=== PATIENT | male | born 1975 | race African-American/Black ===

== ENCOUNTER 2016-09-21 08:49 | Emergency (ER) | payer OTHER, BC ==
[~2016-09-21] VITALS: Ht 185.4 cm; Wt 108.9 kg
[~2016-09-21 08:49] MED LIST: ASPIR 8181 MG PO; BIAXIN500 MG PO; BISACODYL SUPP10 MG RECTAL; CARVEDILOL12.5 MG PO; CLEOCIN HCL150 MG PO; COLACE100 MG PO; COREG3.125 MG PO; FLAGYL500 MG PO; FLEXERIL PO; HYDROCODONE-AP1 EAC6 PO; HYDROXYZINE HCL25 M1 PO; MEDROLDOSEPACK PO; MIRALAX17 GM; NEPHRO-VITE RX1 TA1; NEPHRO-VITE RX1 TA1 PO; NEPHROCAPS SOFT1 CAP PO; NORCO 5-325 TA1 EACH PO; ONDANSETRON HCL4 M2 PO; OXYCODONE HCL 55 MG PO; PAXIL10 MG; PERCOCET 5-3251 EACH PO; PHENERGAN 25 MG25 M1 PO; PLAVIX 75 MG TA75 M1 PO; PROTONIX40 M1 PO; REGLAN 10 MG TA10 MG PO; RENAGEL400 MG PO; RENVELA800 MG PO; SENOKOT-S1 TA1 PO; SENSIPAR60 MG PO; TRAZODONE HCL100 MG PO; TYLENOL325 MG PO; VALIUM2 MG PO; VANCO1GM IV; XANAX1 MG PO; ZOFRAN ODT4 MG PO; ZPAK PO
[2016-09-21 09:12] LABS: ABSOLUTE NEUTROPHILS 5.8 thou/uL (1.4-8.2); BASOPHILS 1.1 % (0.0-2.0); EOSINOPHILS 4.2 % (0.0-3.0); HEMATOCRIT 47.6 % (42.0-52.0); HEMOGLOBIN 15.7 gm/dL (14.0-18.0); MCHC 32.9 % (28.0-37.0); MONOCYTES 9.6 % (1.0-8.0); PLATELET COUNT 235 thou/uL (150-400); POLYS 67.1 % (36.0-66.0); RBC 5.41 mil/uL (4.50-6.00); WBC 8.6 thou/uL (4.0-11.0)
[2016-09-21 09:14] LABS: MANUAL DIFF NO
[2016-09-21 09:21] LABS: CALCIUM 8.5 mg/dL (8.5-10.1); POTASSIUM 5.5 mmol/L (3.5-5.1)
[2016-09-21] MEDS ORDERED: ONDANSETRON HCL4 M2 PO (10:23)
[2016-10-03] MEDS ORDERED: COLACE100 MG PO (07:48)
[2016-10-03] MEDS ORDERED: CITRATE OF MAG296 ML PO (07:48)
== END 2016-09-21 10:44 | disposition home or self-care (01) ==
LOC: ER 08:49
PROVIDERS: Physician Assistant
DX: K31.84 Gastroparesis (principal); I12.9 Hypertensive chronic kidney disease with stage 1 through stage 4 chronic kidney disease, or unspecified chronic kidney disease; N18.9 Chronic kidney disease, unspecified; I25.2 Old myocardial infarction; Z88.0 Allergy status to penicillin; Z91.013 Allergy to seafood

== ENCOUNTER 2016-09-22 08:59 | Emergency (ER) | payer OTHER, BC ==
[~2016-09-22] VITALS: Ht 182.9 cm; Wt 109.8 kg
[2016-09-22 09:45] LABS: HEMATOCRIT 52.2 % (42.0-52.0); HEMOGLOBIN 17.2 gm/dL (14.0-18.0); MCH 28.8 pg (26.0-34.0); MCV 87.4 fL (80.0-100.0); PLATELET COUNT 211 thou/uL (150-400); RBC 5.97 mil/uL (4.50-6.00); WBC 6.1 thou/uL (4.0-11.0)
[2016-09-22 09:48] LABS: MANUAL DIFF YES
[2016-09-22 10:00] LABS: CALCIUM 9.3 mg/dL (8.5-10.1); POTASSIUM 4.6 mmol/L (3.5-5.1)
[2016-09-22 10:07] LABS: TOTAL BILIRUBIN 0.8 mg/dL (<0.1-1.0); TOTAL PROTEIN 8.2 g/dL (6.4-8.2)
[2016-09-22 10:08] LABS: CREATININE 11.8 mg/dL (0.6-1.3)
[2016-09-22 10:30] LABS: ABSOLUTE NEUTROPHILS 4.1 thou/uL (1.4-8.2); TOTAL CELL COUNT 100
[2016-09-22 10:31] LABS: ANISOCYTOSIS 1+
[2016-10-03] MEDS ORDERED: CITRATE OF MAG296 ML PO (07:48)
[2016-10-03] MEDS ORDERED: COLACE100 MG PO (07:48)
== END 2016-09-22 10:53 | disposition home or self-care (01) ==
LOC: ER 08:59
PROVIDERS: Physician Assistant
DX: E86.9 Volume depletion, unspecified (principal); I12.9 Hypertensive chronic kidney disease with stage 1 through stage 4 chronic kidney disease, or unspecified chronic kidney disease; N18.9 Chronic kidney disease, unspecified; I25.2 Old myocardial infarction; Z88.0 Allergy status to penicillin; Z91.013 Allergy to seafood

== ENCOUNTER 2017-02-05 23:10 | Emergency (ER) | payer OTHER ==
[~2017-02-05 23:10] MED LIST changes: +CITRATE OF MAG296 ML PO
== END 2017-02-05 23:24 | disposition left against medical advice (07) ==
LOC: ER 23:10
DX: Z53.21 Procedure and treatment not carried out due to patient leaving prior to being seen by health care provider (principal)

== ENCOUNTER 2017-03-27 16:47 | Emergency (ER) | payer OTHER ==
[~2017-03-27] VITALS: Ht 182.9 cm; Wt 110.7 kg
[~2017-03-27 16:47] MED LIST changes: +ZANTAC 150MG T150 MG PO
[2017-03-27] MEDS ORDERED: XANAX 0.5 MG0.5 MG PO (16:54)
[2017-03-27] MEDS ORDERED: CARVEDILOL3.125 MG PO (16:54)
[2017-03-27] MEDS ORDERED: HYDROCODONE-AP1 EAC6 PO (18:28)
== END 2017-03-27 18:29 | disposition home or self-care (01) ==
LOC: ER 16:47
DX: S92.412A Displaced fracture of proximal phalanx of left great toe, initial encounter for closed fracture (principal); E78.00 Pure hypercholesterolemia, unspecified; I25.2 Old myocardial infarction; I12.0 Hypertensive chronic kidney disease with stage 5 chronic kidney disease or end stage renal disease; N18.6 End stage renal disease; F12.10 Cannabis abuse, uncomplicated; Z99.2 Dependence on renal dialysis; Z94.0 Kidney transplant status; Z88.0 Allergy status to penicillin; Z91.013 Allergy to seafood; W22.8XXA Striking against or struck by other objects, initial encounter; Y93.02 Activity, running; Y92.89 Other specified places as the place of occurrence of the external cause; Y99.8 Other external cause status

== ENCOUNTER 2017-11-04 22:56 | Emergency (ER) | payer OTHER, BC ==
[~2017-11-04] VITALS: Ht 188 cm; Wt 109.8 kg
[~2017-11-04 22:56] MED LIST changes: +CARVEDILOL3.125 MG PO; +XANAX 0.5 MG0.5 MG PO
[2017-11-05 00:32] VITALS: BP 131/84
== END 2017-11-05 00:36 | disposition home or self-care (01) ==
LOC: ER 22:56
DX: J00 Acute nasopharyngitis [common cold] (principal); I10 Essential (primary) hypertension; E78.00 Pure hypercholesterolemia, unspecified; I25.2 Old myocardial infarction; Z88.0 Allergy status to penicillin; Z91.013 Allergy to seafood

== ENCOUNTER → 2018-11-11 | Outpatient (CLI) | payer OTHER | LOC: NUC 11-01 10:51 → LABMALL 08:21 → NUC 08:21 | DX: N25.81 Secondary hyperparathyroidism of renal origin (principal); E11.22 Type 2 diabetes mellitus with diabetic chronic kidney disease; N18.6 End stage renal disease; I12.0 Hypertensive chronic kidney disease with stage 5 chronic kidney disease or end stage renal disease; E11.621 Type 2 diabetes mellitus with foot ulcer; E78.5 Hyperlipidemia, unspecified; L97.529 Non-pressure chronic ulcer of other part of left foot with unspecified severity; Z99.2 Dependence on renal dialysis ==

== ENCOUNTER 2020-04-25 14:23 | Emergency (ER) | payer OTHER, BC ==
[~2020-04-25] VITALS: Ht 182.9 cm; Wt 127.0 kg
[~2020-04-25 14:23] MED LIST changes: +CALCITRIOL0.25 MCG PO; +COREG25 MG PO; +MIRALAX17 GM PO; +NORCO 7.5-3251 EACH PO; +PANTOPRAZOLE SO40 M1 PO; +SIMETHICON CHEW80 M1 PO; +TUMS PO; +TYLENOL EXTRA500 MG PO
[2020-04-25 15:37] LABS: HEMATOCRIT 46.9 % (42.0-52.0); HEMOGLOBIN 15.8 gm/dL (14.0-18.0); MCH 28.7 pg (26.0-34.0); MCHC 33.7 g/dL (28.0-37.0); MCV 85.3 fL (80.0-100.0); PLATELET COUNT 130 thou/uL (150-400); RDW 16.5 % (10.5-14.5); WBC 4.5 thou/uL (4.0-11.0)
[2020-04-25 15:46] LABS: ANION GAP 10 mmol/L (7-16); BUN 53 mg/dL (7-18); CALCIUM 8.1 mg/dL (8.5-10.1); CHLORIDE 88 mmol/L (98-107); CO2 31 mmol/L (21-32); GLUCOSE 95 mg/dL (74-106); POTASSIUM 5.6 mmol/L (3.5-5.1); SODIUM 129 mmol/L (136-145)
[2020-04-25 15:55] LABS: ALBUMIN 3.2 g/dL (3.4-5.0); LIPASE 108 U/L (73-393); SGOT 28 U/L (15-37); SGPT 20 U/L (30-65); TOTAL BILIRUBIN 0.7 mg/dL (0.2-1.0); TOTAL PROTEIN 7.3 g/dL (6.4-8.2); TROPONIN-I <0.06 ng/mL (<0.06)
[2020-04-25 16:03] LABS: ABSOLUTE NEUTROPHILS 3.3 thou/uL (1.4-8.2); ANISOCYTOSIS 1+
[2020-04-25 18:17] VITALS: BP 142/85
--- NOTE | 2020-04-26 09:23 | EKG ---
[facility] [place] [address] ELECTROCARDIOGRAM REPORT Name: SAMUEL VELASCO Room #: DEP [facility]#: [id number] Admission: 04/25/20 Attend Phys: Discharge: 04/25/20 Date of : 75 Report #: [id number] THIS REPORT FOR: cc: FAM - No family physician/PCP FAM - No family physician/PCP Luis Felipe Hernandez MD [facility] THIS REPORT FOR: //name// [facility] ED Test Date: 2020-04-25 Test Time: 14:50:36 Pat Name: SAMUEL VELASCO Department: Room: Gender: Coffee Shop Manager: DUANE : 1975 Requested By: Carlos Mendez Order Number: [id number] MD: Luis Felipe Hernandez Measurements Intervals [place] Rate: 85 P: 79 [place]: 155 QRS: 74 QRSD: 143 T: 40 QT: 387 QTc: 461 Interpretive Statements Sinus rhythm Small inferior Q waves Compared to ECG 11/20/2018 08:08:59 Inferior Q waves are much less prominent Electronically Signed On 04-26-2020 9:23:25 CDT by Luis Felipe Hernandez [email or web address] <ELECTRONICALLY SIGNED> By: Luis Felipe Hernandez MD, [facility] 04/26/20 0923 1450 1450 Luis Felipe Hernandez MD, [facility] /EPI
== END 2020-04-25 18:17 | disposition home or self-care (01) ==
LOC: ER 14:23
PROVIDERS: Emergency Medicine
DX: R10.84 Generalized abdominal pain (principal); I10 Essential (primary) hypertension; I25.2 Old myocardial infarction; K21.9 Gastro-esophageal reflux disease without esophagitis; Z79.899 Other long term (current) drug therapy; Z88.0 Allergy status to penicillin; Z91.013 Allergy to seafood; Z88.8 Allergy status to other drugs, medicaments and biological substances

== ENCOUNTER 2020-04-27 21:43 | Inpatient (IN) | payer OTHER, BC ==
[~2020-04-27] VITALS: Ht 182.9 cm; Wt 54.2 kg
[2020-04-27 21:48] VITALS: BP 145/100
[2020-04-27 22:23] LABS: ABSOLUTE NEUTROPHILS 2.2 thou/uL (1.4-8.2); BASOPHILS 0.7 % (0.0-2.0); EOSINOPHILS 0.1 % (0.0-3.0); HEMATOCRIT 47.1 % (42.0-52.0); HEMOGLOBIN 15.7 gm/dL (14.0-18.0); LYMPHOCYTES 19.8 % (24.0-44.0); MCH 28.6 pg (26.0-34.0); MCHC 33.4 g/dL (28.0-37.0); MCV 85.7 fL (80.0-100.0); MONOCYTES 11.8 % (1.0-8.0); POLYS 67.6 % (36.0-66.0); RDW 16.4 % (10.5-14.5); WBC 3.3 thou/uL (4.0-11.0)
[2020-04-27 22:30] LABS: CALCIUM 7.1 mg/dL (8.5-10.1); POTASSIUM 5.4 mmol/L (3.5-5.1)
[2020-04-27 22:41] LABS: ALBUMIN 3.1 g/dL (3.4-5.0); TOTAL BILIRUBIN 0.5 mg/dL (0.2-1.0); TOTAL PROTEIN 7.1 g/dL (6.4-8.2); TROPONIN-I 0.21 ng/mL (<0.06)
[2020-04-27 23:28] LABS: PLATELET COUNT 98 thou/uL (150-400); PLATELET ESTIMATE DECREASED
[2020-04-28 05:34] LABS: HEMATOCRIT 47.3 % (42.0-52.0); HEMOGLOBIN 15.3 gm/dL (14.0-18.0); MCH 28.4 pg (26.0-34.0); MCHC 32.3 g/dL (28.0-37.0); MCV 87.7 fL (80.0-100.0); RBC 5.39 mil/uL (4.50-6.00); RDW 16.3 % (10.5-14.5); WBC 3.2 thou/uL (4.0-11.0)
[2020-04-28 07:06] VITALS: BP 105/79
--- NOTE | 2020-04-28 08:32 | EKG ---
[facility] [address] [address] ELECTROCARDIOGRAM REPORT Name: SAMUEL VELASCO Room #: 170-8 ADM IN M.R.#: [id number] Admission: 04/27/20 Attend Phys: Jude Hernandez Discharge: Date of : 75 Report #: [id number] THIS REPORT FOR: cc: AGUSTIN - [place] family physician/PCP AGUSTIN - No family physician/PCP Luis Felipe Hernandez MD [facility] THIS REPORT FOR: //name// [facility] ED Test Date: 2020-04-27 Test Time: 22:08:45 Pat Name: SAMUEL VELASCO Department: Room: 170 Gender: M [employer]: TOPHER : 1975 Requested By: Jonny Shannon Order Number: [id number] MD: Luis Felipe Hernandez Measurements Intervals [place] Rate: 102 P: 99 [place]: 190 QRS: 90 QRSD: 100 T: 52 QT: 342 QTc: 446 Interpretive Statements Sinus tachycardia with frequent atrial premature complexes Borderline right axis deviation Possible anteroseptal infarct, old Compared to ECG 04/25/2020 14:50:36 Atrial premature complexes are now present Electronically Signed On 04-28-2020 8:32:44 CDT by Luis Felipe Hernandez [email or web address] <ELECTRONICALLY SIGNED> By: Luis Felipe Hernandez MD, [facility] 04/28/20831 07 07 Luis Felipe Hernandez MD, FAC /EPI
[2020-04-28 15:15] LABS: CALCIUM 6.6 mg/dL (8.5-10.1); CREATININE 11.6 mg/dL (0.7-1.3)
[2020-04-28 15:21] LABS: POTASSIUM 6.4 mmol/L (3.5-5.1)
[2020-04-28 19:44] VITALS: BP 133/96
[2020-04-28 20:42] VITALS: BP 133/94
[2020-04-28 23:49] VITALS: BP 145/88
[2020-04-29] VITALS (7 sets, daily range): BP systolic 123–163; BP diastolic 74–96
[2020-04-29] MEDS ORDERED: ASPIR 8181 MG PO (09:32)
[2020-04-29 11:06] LABS: CALCIUM 6.5 mg/dL (8.5-10.1)
[2020-04-29 11:09] LABS: POTASSIUM 5.4 mmol/L (3.5-5.1)
[2020-04-29] MEDS ORDERED: CHLORPROMAZINE25 M1 PO (12:46)
[2020-04-30] VITALS (7 sets, daily range): BP systolic 100–140; BP diastolic 46–87
[2020-05-01 04:57] VITALS: BP 132/74
[2020-05-01 09:01] LABS: HEMATOCRIT 43.6 % (42.0-52.0); HEMOGLOBIN 14.2 gm/dL (14.0-18.0); MCH 28.1 pg (26.0-34.0); MCHC 32.7 g/dL (28.0-37.0); RBC 5.07 mil/uL (4.50-6.00); RDW 16.3 % (10.5-14.5); WBC 2.9 thou/uL (4.0-11.0)
[2020-05-01 09:14] LABS: ALBUMIN 2.5 g/dL (3.4-5.0); CALCIUM 6.2 mg/dL (8.5-10.1); CREATININE 13.2 mg/dL (0.7-1.3); PHOSPHORUS 5.1 mg/dL (2.5-4.9); POTASSIUM 4.3 mmol/L (3.5-5.1)
[2020-05-01 09:25] LABS: FIBRINOGEN 388.3 mg/dL (210-360); INR 1.1; PROTIME 11.6 Seconds (9.3-11.4)
[2020-05-01 11:03] LABS: ALBUMIN 2.6 g/dL (3.4-5.0); DIRECT BILIRUBIN 0.2 mg/dL (<0.1-0.2); TOTAL BILIRUBIN 0.5 mg/dL (0.2-1.0); TOTAL PROTEIN 6.6 g/dL (6.4-8.2)
[2020-05-01 11:49] VITALS: BP 135/88
[2020-05-01 14:53] VITALS: BP 176/83
[2020-05-01 18:22] VITALS: BP 150/51
[2020-05-01 19:32] VITALS: BP 113/70
[2020-05-02 00:14] VITALS: BP 118/66
[2020-05-02 04:30] VITALS: BP 116/74
[2020-05-02 07:00] VITALS: BP 123/78
[2020-05-02 11:25] VITALS: BP 113/61
[2020-05-02 20:15] VITALS: BP 138/84
[2020-05-02 23:21] VITALS: BP 146/94
[2020-05-03 05:57] VITALS: BP 113/79
[2020-05-03 07:42] VITALS: BP 137/111
[2020-05-03] MEDS ORDERED: DILTIAZEM 24HR180 M1 PO (09:09)
[2020-05-03] MEDS ORDERED: ELIQUIS2.5 MG PO (09:09)
[2020-05-03 11:35] VITALS: BP 140/107
--- NOTE | 2020-05-05 16:07 | HC ---
[facility] [place] [address] CONSULTATION Name: SAMUEL VELASCO Room #: 364-P [facility] IN M.R.#: [id number] Admission: 04/27/20 Attend Phys: Jude Hernandez Discharge: 05/03/20 Date of : 75 Report #: [id number] THIS REPORT FOR: cc: AGUSTIN - [place] family physician/PCP AGUSTIN - [place] family physician/PCP Gurmeet English MD ~ CC: AGUSTIN physician/PCP Jude Hernandez DATE OF SERVICE: 05/03/2020 WOUND CARE CONSULTATION PERSONAL PHYSICIAN: Radha. CHIEF COMPLAINT: Right lateral foot ulcer. HISTORY OF PRESENT ILLNESS: This is a 44-year-old black male with a history of end-stage renal disease and coronary artery disease, who was admitted for intractable hiccups and found to have a non-ST elevation myocardial infarction. The patient was also COVID-19 positive. Upon admission, the patient was noted to have a chronic ulcer on the right lateral aspect of his foot, which we have been asked to assist in the care. The patient states he has had this ulceration for several weeks. He is followed by outside physician at [facility]. The patient states that he has been using dry gauze to keep it as dry as possible per the physician's request. The patient denies any other associated wounds at this time. The patient states actually he is feeling better and is planning on leaving to go home today. PAST MEDICAL HISTORY: Once again end-stage renal disease with a failed kidney transplant in 2006, coronary artery disease, hypertension, dialysis, chronic ulceration right lateral foot. CURRENT MEDICATIONS: Multiple. I reviewed his medication list. DRUG ALLERGIES: PENICILLIN, REGLAN, AND SHELLFISH. SOCIAL HISTORY: The patient does not smoke or drink alcohol. Does smoke marijuana occasionally. FAMILY HISTORY: Not pertinent to current medical condition. REVIEW OF SYSTEMS: CONSTITUTIONAL: The patient denies chills. Has had a low-grade fever. NEUROLOGIC: The patient complains of mild generalized weakness, but no isolated weakness in arms or legs. [address] [address] CONSULTATION Name: SAMUEL VELASCO Room #: 364-P [facility] IN M.R.#: [id number] Admission: 04/27/20 Attend Phys: Jude Hernandez Discharge: 05/03/20 Date of : 75 Report #: [id number] EYES: No complaints. ENT: The patient was admitted for intractable hiccups, which have now resolved. CARDIAC: The patient denies chest pain, palpitations, peripheral edema. RESPIRATORY: The patient denies shortness of breath, cough or wheezes. GASTROINTESTINAL: The patient denies nausea, vomiting or abdominal pain. GENITOURINARY: The patient denies urgency or frequency. MUSCULOSKELETAL: No complaints. SKIN: The patient has a chronic ulcer on the right lateral plantar foot over the fifth metatarsal head. PHYSICAL EXAMINATION: VITAL SIGNS: Temperature 36.4, pulse 100, respirations 18, BP 140/107. GENERAL: Alert and oriented x 3, pleasant black male who is in absolutely no distress. HEENT: Normocephalic, atraumatic. Mucous membranes moist. Pupils are round. Sclerae white. NECK: Supple, nontender. LUNGS: Clear. HEART: Regular. ABDOMEN: Soft, nontender. EXTREMITIES: The patient moves all extremities without difficulty. Distal pulses are intact. Evaluation of right lateral foot reveals a chronic ulcer, which is clean and granulating, but does probe to bone, but however, there is not any evidence of exposed bone. Periwound is otherwise intact and dry. There is minimal serosanguineous drainage noted without odor. No significant undermining or tunneling. Bilateral heels are intact. NEUROLOGIC: Cranial nerves 2-12 grossly intact. Motor and sensory grossly intact. LABORATORY DATA: White count 2.9, hemoglobin 14.2. C-reactive protein was 213.8, albumin was 2.5. X-ray of the right foot reveals no signs of any obvious osteomyelitis. IMPRESSION: 1. Chronic ulceration, right lateral foot fifth metatarsal head. 2. End-stage renal disease, on hemodialysis. 3. Coronary artery disease. 4. Hypertension. 5. Protein-calorie malnutrition -- moderate with albumin 2.5. 6. Generalized debility. PLAN: We will use Betadine and dry gauze to the right lateral foot be changed daily. The patient is going to be discharged today. He will follow up with his primary care physician who provided in his wound care. I did give the patient my card and had stated if he needs further wound care or additional wound care, he can always contact my office for further followup. I have encouraged him to [address] [address] CONSULTATION Name: SAMUEL VELASCO Room #: 364-P [facility] IN ..#: [id number] Admission: 04/27/20 Attend Phys: Jude Hernandez Discharge: 05/03/20 Date of : 75 Report #: [id number] try to eat increased protein supplementation for his renal diet for healing. We will continue all other current medications. I appreciate ability to consult. <ELECTRONICALLY SIGNED> By: Gurmeet English MD 05/05/20 1607 1646 1936 Gurmeet English MD /nt
== END 2020-05-03 13:10 | disposition home or self-care (01) | DRG 177 ==
LOC: ER 21:43 → 3W 23:36 → EROBS 23:36 → 3W 04-28 20:10
PROVIDERS: Emergency Medicine; Nurse Practitioner Family; Specialist; ADMIT Hospitalist; ATTEND Hospitalist
PROC: 5A1D70Z Performance of Urinary Filtration, Intermittent, Less than 6 Hours Per Day (ICD-10-PCS; principal; 2020-04-28)
PROC: 5A1D70Z Performance of Urinary Filtration, Intermittent, Less than 6 Hours Per Day (ICD-10-PCS; 2020-04-29)
PROC: 5A1D70Z Performance of Urinary Filtration, Intermittent, Less than 6 Hours Per Day (ICD-10-PCS; 2020-05-01)
PROC: XW13325 Transfusion of Convalescent Plasma (Nonautologous) into Peripheral Vein, Percutaneous Approach, New Technology Group 5 (ICD-10-PCS; 2020-05-01)
PROC: 5A1D70Z Performance of Urinary Filtration, Intermittent, Less than 6 Hours Per Day (ICD-10-PCS; 2020-05-03)
DX: U07.1 COVID-19 (principal); I21.4 Non-ST elevation (NSTEMI) myocardial infarction; N18.6 End stage renal disease; J12.89 Other viral pneumonia; I12.0 Hypertensive chronic kidney disease with stage 5 chronic kidney disease or end stage renal disease; E87.1 Hypo-osmolality and hyponatremia; T86.12 Kidney transplant failure; E44.0 Moderate protein-calorie malnutrition; Z68.1 Body mass index [BMI] 19.9 or less, adult; J81.1 Chronic pulmonary edema; I48.20 Chronic atrial fibrillation, unspecified; K21.9 Gastro-esophageal reflux disease without esophagitis; R06.6 Hiccough; I25.10 Atherosclerotic heart disease of native coronary artery without angina pectoris; F12.90 Cannabis use, unspecified, uncomplicated; L97.529 Non-pressure chronic ulcer of other part of left foot with unspecified severity; K31.84 Gastroparesis; F41.9 Anxiety disorder, unspecified; I48.0 Paroxysmal atrial fibrillation; I25.2 Old myocardial infarction; Z99.2 Dependence on renal dialysis; Z95.5 Presence of coronary angioplasty implant and graft; Z88.8 Allergy status to other drugs, medicaments and biological substances; Z88.0 Allergy status to penicillin; Z91.013 Allergy to seafood; Z79.899 Other long term (current) drug therapy
CPT/HCPCS: 10879; 32100

== ENCOUNTER 2021-10-22 04:48 | Emergency (ER) | payer OTHER, BC ==
[~2021-10-22] VITALS: Ht 182.9 cm; Wt 113.4 kg
[~2021-10-22 04:48] MED LIST changes: +CHLORPROMAZINE25 M1 PO; +DILTIAZEM 24HR180 M1 PO; +ELIQUIS2.5 MG PO
[2021-10-22 05:25] LABS: ABSOLUTE NEUTROPHILS 4.5 thou/uL (1.4-8.2); BASOPHILS 0.8 % (0.0-2.0); EOSINOPHILS 1.7 % (0.0-3.0); HEMATOCRIT 39.6 % (42.0-52.0); HEMOGLOBIN 13.3 gm/dL (14.0-18.0); LYMPHOCYTES 20.8 % (24.0-44.0); MCH 29.8 pg (26.0-34.0); MCHC 33.5 g/dL (28.0-37.0); MCV 88.9 fL (80.0-100.0); MONOCYTES 10.5 % (1.0-8.0); PLATELET COUNT 222 thou/uL (150-400); POLYS 66.2 % (36.0-66.0); RBC 4.46 mil/uL (4.50-6.00); RDW 16.5 % (10.5-14.5); WBC 6.8 thou/uL (4.0-11.0)
[2021-10-22 05:27] LABS: CALCIUM 7.6 mg/dL (8.5-10.1); CREATININE 13.2 mg/dL (0.7-1.3); POTASSIUM 3.7 mmol/L (3.5-5.1)
[2021-10-22 05:38] LABS: ALBUMIN 3.7 g/dL (3.4-5.0); DIRECT BILIRUBIN 0.2 mg/dL (<0.1-0.2); TOTAL BILIRUBIN 0.6 mg/dL (0.2-1.0); TOTAL PROTEIN 7.9 g/dL (6.4-8.2)
[2021-10-22 06:56] VITALS: BP 190/98
--- NOTE | 2021-10-24 07:36 | EKG ---
[address] [place] [employer] [place] [address] ELECTROCARDIOGRAM REPORT Name: SAMUEL VELASCO Room #: DEP [facility]#: [id number] Admission: 10/22/21 Attend Phys: Discharge: 10/22/21 Date of : 75 Report #: [id number] [facility] ED Test Date: 2021-10-22 Test Time: 04:59:50 Pat Name: SAMUEL VELASCO Department: Room: Gender: M Machine Operator: : 1975 Requested By: Anthony Rader Order Number: [id number] MD: Neo Guerrero Measurements Intervals [place] Rate: 85 P: 65 NM: 166 QRS: 42 QRSD: 138 T: 34 QT: 409 QTc: 487 Interpretive Statements Sinus rhythm Nonspecific intraventricular conduction delay Inferior infarct, old Compared to ECG 04/27/2020 22:08:45 Intraventricular conduction delay now present Sinus tachycardia no longer present Atrial premature complex(es) no longer present Myocardial infarct finding still present Electronically Signed On 10-24-2021 7:35:49 DUMP WORKER by Neo Guerrero [email or web address] <ELECTRONICALLY SIGNED> By: Neo Guerrero MD, [facility] 10/24/21 0735 0459 0459 Neo Guerrero MD, FACC /EPI
== END 2021-10-22 06:58 | disposition home or self-care (01) ==
LOC: ER 04:48
PROVIDERS: Student in an Organized Health Care Education/Training Program
DX: R10.816 Epigastric abdominal tenderness (principal); R11.2 Nausea with vomiting, unspecified; I12.9 Hypertensive chronic kidney disease with stage 1 through stage 4 chronic kidney disease, or unspecified chronic kidney disease; N18.9 Chronic kidney disease, unspecified; K21.9 Gastro-esophageal reflux disease without esophagitis; Z99.2 Dependence on renal dialysis; Z88.0 Allergy status to penicillin; Z91.013 Allergy to seafood